=== PATIENT | female | born 1950 | race Hispanic/Latino ===

== ENCOUNTER → 2019-01-02 | Outpatient (CLI) | payer OTHER, MEDICAID | LOC: RESP 13:06 | PROVIDERS: ATTEND Emergency Medicine | DX: R00.1 Bradycardia, unspecified (principal) ==

== ENCOUNTER 2019-12-12 16:47 | Observation (INO) | payer OTHER, MEDICAID ==
--- NOTE | 2019-12-12 16:57 | ED.PDOC ---
History of Present Illness - General Time Seen by Provider: 12/12/19 16:53 Additional Information: This is a 69-year-old female, with a diabetes obesity history of coronary artery disease has had a stress test less than a year, patient presents to the ER because of a two-week history of chest tightness, pain comes and goes but is getting progressively worse even at rest, patient said that it feels like is going to her neck and today she felt dizzy. No nausea no vomiting no diaphoresis no shortness of breath, patient mentioned that when she takes a deep breath he feels like it hurts, patient was supposed to see a direct entry midwife have been trying to make an appointment with his direct entry midwife is in [place] but was unsuccessful in getting an appointment, because she got dizzy she decided to come in and get herself checked - History of Present Illness Timing/Duration: other - 2 weeks Location: central Chest Pain Radiation: neck Activities at Onset: none Prior Chest Pain/Cardiac Workup: cardiac cath, stress test Improving Factors: nothing Worsening Factors: nothing Aspirin Treatment Today: 81 mg x 2 Associated Symptoms: dizziness Allergies/Adverse Reactions: Allergies NO KNOWN ALLERGY Allergy (Verified 12/12/19 17:03) Home Medications: Ambulatory Orders Amlodipine Besylate 5 mg PO DAILY 12/12/19 Aspirin [Aspirin Adult Low Dose] 162 mg PO DAILY 12/12/19 Hydroxyzine HCl 25 mg PO TID PRN 12/12/19 Lisinopril 40 mg PO DAILY 12/12/19 Metformin HCl [Glucophage] 1,000 mg PO BID 12/12/19 Omeprazole 40 mg PO DAILY 12/12/19 Pravastatin Sodium 40 mg PO DAILY 12/12/19 Verapamil HCl [Verapamil Hydrochloride] 120 mg PO DAILY 12/12/19 Review of Systems - Review of Systems Constitutional: States: no symptoms reported Respiratory: States: no symptoms reported Cardiology: States: chest pain Gastrointestinal/Abdominal: States: no symptoms reported Genitourinary: States: no symptoms reported Musculoskeletal: States: no symptoms reported Skin: States: no symptoms reported Neurological: States: no symptoms reported Endocrine: States: no symptoms reported Hematologic/Lymphatic: States: no symptoms reported Family Medical History - Family History Mother Family History: Unknown Living Status: Unknown Physical Exam - Physical Exam General Appearance: Alert, Well Developed, Well Groomed, Well Hydrated, Well Nourished, Other - Obese Eyes, Ears, Nose, Throat Exam: PERRL/EOMI, normal ENT inspection, TMs normal Neck: non-tender, full range of motion, supple, normal inspection Respiratory: chest non-tender, lungs clear, normal breath sounds, no respiratory distress, no accessory muscle use Cardiovascular/Chest: normal peripheral pulses, regular rate, rhythm, no edema, no gallop, no JVD, no murmur Gastrointestinal/Abdominal: normal bowel sounds, non tender, soft, no organomegaly, no pulsatile mass, abnormal bowel sounds Extremity: normal range of motion, non-tender, normal inspection, no pedal edema, no calf tenderness, normal capillary refill 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 FINDINGS: The cardiomediastinal silhouette appears unremarkable. Atherosclerotic calcifications in the thoracic aorta. Mild elevation of the right hemidiaphragm. No consolidating infiltrates or pleural effusions. No pneumothorax. IMPRESSION: No acute abnormality is identified 12/12/19 18:15 12/12/19 18:44 FINDINGS: Aorta is calcified. Mild cardiac enlargement. Calcification of the coronary arteries. No evidence of aortic dissection or pulmonary embolus. Fatty liver. No significant thoracic adenopathy. Focal areas of mosaic attenuation are noted. IMPRESSION:No evidence of pulmonary embolus Cardiac enlargement No evidence of acute process in the chest This is a 69-year-old female, presenting with chest pain, has been going on for a week getting progressively worse patient EKG did not show any acute ischemic changes, patient chest pain got better with aspirin and nitro first set of troponins , Second set of troponins were also negative, CTA was ordered because her D-dimers were elevated and CTA showed calcification of the coronaries without evidence of pneumonia or evidence of pulmonary embolism I spoke with the direct entry midwife Dr. Kramer and patient can stay in the hospital for observation and and also patient should be discharged tomorrow with some sort of a beta-oliver due to her blood pressure and some nitro for the treatment of angina, and the patient should follow-up with her own direct entry midwife once she is discharged - Results/Orders Results/Orders: Patient EKG showed PVC normal sinus rhythm no ST elevation or depression left atrial enlargement left ventricular hypertrophy Departure - Departure Clinical Impression: Chest pain Qualifiers: Chest pain type: unspecified Qualified Code(s): R07.9 - Chest pain, unspecified Disposition: Admit Patient Referrals: LEVY CASANOVA [Primary Care Provider] - 1-2 Weeks Home Medications: Ambulatory Orders Amlodipine Besylate 5 mg PO DAILY 12/12/19 Aspirin [Aspirin Adult Low Dose] 162 mg PO DAILY 12/12/19 Hydroxyzine HCl 25 mg PO TID PRN 12/12/19 Lisinopril 40 mg PO DAILY 12/12/19 Metformin HCl [Glucophage] 1,000 mg PO BID 12/12/19 Omeprazole 40 mg PO DAILY 12/12/19 Pravastatin Sodium 40 mg PO DAILY 12/12/19 Verapamil HCl [Verapamil Hydrochloride] 120 mg PO DAILY 12/12/19 Decision To Admit - Decistion To Admit Decision to Admit Reason: Admit from ER Decision to Admit Date: 12/12/19 Decision to Admit Time: 19:03
[2019-12-12] MEDS ORDERED: ASPIRIN (CHEWABLE) 81 MG TAB PO ONE (17:03)
[2019-12-12] MEDS ORDERED: NITROGLYCERIN 0.4 MG 25 EA TAB SL ONE (17:09)
--- NOTE | 2019-12-12 17:34 | RAD ---
EXAM DESCRIPTION: Chest,1 View CLINICAL HISTORY: 69 years Female Chest pain COMPARISON: 06/17/2019. FINDINGS: The cardiomediastinal silhouette appears unremarkable. Atherosclerotic calcifications in the thoracic aorta. Mild elevation of the right hemidiaphragm. No consolidating infiltrates or pleural effusions. No pneumothorax. IMPRESSION: No acute abnormality is identified. Electronically signed by: Melvin Jules MD 12/12/2019 5:32 PM CDT
--- NOTE | 2019-12-12 18:41 | CT ---
PROCEDURE: CTA Chest CLINICAL HISTORY: 69 years Female rule out pulmonary embolism COMPARISON: None. TECHNIQUE: Contiguous axial images were obtained through the chest during the infusion of IV contrast. Reformatted images obtained. MIP reformatted images obtained. This exam was performed according to our department optimization program which includes automated exposure control, adjustment of the mA and/or kv according to patient size and/or use of iterative reconstruction technique. FINDINGS: Aorta is calcified. Mild cardiac enlargement. Calcification of the coronary arteries. No evidence of aortic dissection or pulmonary embolus. Fatty liver. No significant thoracic adenopathy. Focal areas of mosaic attenuation are noted. IMPRESSION:No evidence of pulmonary embolus Cardiac enlargement No evidence of acute process in the chest Fatty liver Electronically signed by: Eunice Jules MD 12/12/2019 6:39 PM CDT
[2019-12-12] MEDS ORDERED: ENOXAPARIN SODIUM 40 MG/0.4 ML SYG SUBCU SCH (21:00)
[2019-12-12] MEDS ORDERED: amLODIPine BESYLATE 5 MG TAB PO SCH (21:00)
[2019-12-12] MEDS ORDERED: VERAPAMIL HCL 120 MG PO SCH (21:00)
[2019-12-12] MEDS ORDERED: GLUCAGON INJ 1 MG VIAL SUBCU PRN (22:55)
[2019-12-12] MEDS ORDERED: DEXTROSE 50% 25 GM/50 ML SYG IV PRN (22:55)
[2019-12-12] MEDS ORDERED: MORPHINE SULFATE INJ 10 MG/ML VIAL IV PRN (22:56)
[2019-12-12] MEDS ORDERED: NITROGLYCERIN 0.4 MG 25 EA TAB SL PRN (22:56)
[2019-12-12] MEDS ORDERED: SODIUM CHLORIDE 0.9% (FLUSH) 10 ML SYG IV PRN (22:56)
[2019-12-12] MEDS ORDERED: IV SET AND CAP CHANGE INJ INJ SCH (23:00)
[2019-12-12] MEDS ORDERED: NITROGLYCERIN 0.4 MG/HR PATCH TOP SCH (23:00)
[2019-12-12] MEDS ORDERED: VERAPAMIL ER 120 MG TAB PO SCH (23:42)
[2019-12-13] MEDS: ACETAMINOPHEN 325 MG TAB PO PRN ×2 (01:05→12:51)
[2019-12-13] MEDS ORDERED: PANTOPRAZOLE SODIUM IV 40 MG VIAL IV SCH (06:30)
[2019-12-13] MEDS: INSULIN LISPRO 100 UNITS/ML PEN SUBCU SCH ×2 (07:36→11:21)
[2019-12-13] MEDS ORDERED: ASPIRIN TABLET 325 MG TAB PO SCH (09:00)
[2019-12-13] MEDS ORDERED: metFORMIN HCL 500 MG TAB PO SCH (09:00)
[2019-12-13] MEDS ORDERED: SODIUM CHLORIDE 0.9% (FLUSH) 10 ML SYG IV SCH (09:00)
[2019-12-13] MEDS ORDERED: ASPIRIN (ENTERIC COATED) 81 MG TAB PO SCH (09:00)
[2019-12-13] MEDS ORDERED: NON-FORMULARY MEDICATION 1 EA MIS (Omeprazole [Omeprazole] 40 MG) PO SCH (09:00)
[2019-12-13] MEDS: LISINOPRIL 10 MG TAB PO SCH ×2 (09:34→09:54)
[2019-12-13 14:15] VITALS: BP 105/69; TEMP 98.2; O2SAT 97
--- NOTE | 2019-12-13 15:31 | SSS ---
SUPERVISING PHYSICIAN: Edwin Arellano MD CHIEF COMPLAINT: Chest pain. HISTORY OF PRESENT ILLNESS: Ms. Matson is a 69 year-old female with a history of diabetes, obesity, coronary artery disease. She presented to the Emergency Room complaining of chest tightness that has been going on for the last two weeks and has progressively worsened she notes at rest. She denied any nausea or vomiting or shortness of breath or diaphoresis. She notes it does hurt a little bit when she takes a deep breath. She was supposed to see her historical site guide the first of the month but due to the COVID-19 situation did not make that appointment. She does see Dr. Oliveros in [place] and apparently has had a known cath and stress test workup but needs additional intervention at some point. I believe she is supposed to see her historical site guide on December 22. She noted at home she had been getting a little dizzy and at that point decided to come to the Emergency Room for evaluation. She did take 2 aspirin before she got to the Emergency Room. Cardiac workup in the Emergency Room did show her cardiac enzymes were negative times 2 sets. She did have an elevated D-dimer at 887. CT of the chest was completed which was negative for a pulmonary embolus or any other acute process noted in the chest per radiology interpretation. She denied any falls, shortness of breath or tachycardia but does have a fairly large bruise on her upper right arm with some ecchymoses from an event that she is not sure if she bumped her arm on something in the last week but denies any falls. Her EKG in the Emergency Room showed a sinus rhythm with a PVC but no ST elevation or depression. There was some note of left atrial enlargement and some ventricle hypertrophy, otherwise no acute findings to indicate ischemia or injury pattern. Her pain actually was resolved in the Emergency Room prior to request for placement in observation. Based on the patient's history and concerns for acute coronary syndrome, the Emergency Room physician contacted historical site guide, Dr. Kramer, who recommended the patient be placed in observation overnight with blood pressure medicine which after reviewing her medications notes she is on multiple medications including Verapamil. She was placed in observation in stable condition for further evaluation and cardiac telemetry PAST MEDICAL HISTORY: 1. Hypertension. 2. Diabetes mellitus type 2. 3. Depression and anxiety. 4. Coronary artery disease. PAST SURGICAL HISTORY: 1. Right knee replacement. 2. Cholecystectomy. CURRENT MEDICATIONS: 1. Metformin 1000 mg b.i.d. 2. Lisinopril 40 mg daily. 3. Pravastatin 40 mg at bedtime. 4. Aspirin 162 mg daily. 5. Hydroxyzine 25 mg t.i.d. as needed. 6. Verapamil extended release 120 mg at bedtime. 7. Amlodipine 5 mg at bedtime. 8. Omeprazole 40 mg daily. ALLERGIES: No known drug allergies. FAMILY HISTORY: Mother in her late 80s with history of diabetes, hypertension and a stroke. Father in his late 60s, his health history is unknown to the patient. She has 8 brothers and sisters, one sister in her 50s with a history of colon cancer, diabetes mellitus and cardiovascular disease. The rest of her brothers and sisters have diabetes but are fairly healthy. SOCIAL HISTORY: The patient resides in [place], [place] and is disabled, and lives alone. She denies any history of alcohol or tobacco abuse and does not use any illicit drugs. REVIEW OF SYSTEMS: CONSTITUTIONAL: Denies general malaise, fevers, chills, weakness. HEENT: Denies headaches. vision changes, sore throat. nasal congestion, earaches. CHEST: Denies shortness of breath, orthopnea, wheezing or coughing. HEART: As noted in history of present illness, chest tightness, denies palpitations, tachycardia or syncopal episodes. ABDOMEN: Denies nausea, vomiting, diarrhea or constipation. GENITOURINARY: Denies dysuria, hematuria or polyuria. MUSCULOSKELETAL: Denies arthralgias, joint swelling. SKIN: Denies lesions, rashes, moles, other than the bruising on her right upper forearm. NEUROLOGIC: Denies ataxia, seizures, or other focal deficits. HEMATOLOGICAL: Denies unexplained bleeding, easy bruising or transfusion reactions. PHYSICAL EXAMINATION: VITAL SIGNS: On admission to the Emergency Room, temperature 99.3, pulse 89, blood pressure 180/85, respirations 20, oxygen saturation 95% on room air. At time of discharge, vital signs showed a temperature of 98.2, pulse 70, blood pressure 105/69, respirations 18, oxygen saturation 97%on room air. Discharge weight 104.1 kg. GENERAL: The patient was resting comfortably, did not appear to be in acute distress. She is alert, appears well-nourished, well-hydrated. HEENT: Tympanic membranes are clear bilaterally. Oropharynx is pink, moist, without any lesions. NECK: Supple, non-tender, full range of motion, no jugular venous distention. CHEST: Lung sounds were clear to auscultation bilaterally without rhonchi, rales, or wheezes. CARDIOVASCULAR: Regular rate and rhythm without appreciable murmurs, rubs, or gallops. ABDOMEN: Obese, soft, non-tender, positive bowel sounds. EXTREMITIES: Without cyanosis, clubbing, or edema. NEUROLOGIC: Cranial nerves II through XII are grossly intact. She is alert and oriented x3. Facial features were symmetrical. Extraocular movements within normal limits. There was no notable nystagmus. SKIN: Warm, pink and dry. LABORATORY: CBC showed to be within normal limits with white count of 7,500. Hemoglobin 12.8, hematocrit 38.0, platelet count 293,000. Coagulation studies showed a D-dimer of 887. Chemistries showed normal electrolytes, normal lipid panel. She had 3 sets of troponins, all less than 0.02. Blood sugars ranged between 102 and 180. EKG showed a normal sinus rhythm with a few PVCs, no ST or T-wave changes to indicate acute ischemia or acute coronary syndrome. RADIOLOGY: Chest x-ray per radiology interpretation showed acute abnormalities identified. Given her elevated D-dimer and symptomatology, she had a CTA of the chest and per radiology interpretation showed no evidence of pulmonary embolus. Cardiac silhouette was enlarged. There was no evidence of acute process of the chest. There was note of a fatty liver. ADMISSION DIAGNOSES: 1. Chest pain, observation for rule out. 2. Elevated D-dimer with negative CTA of the chest. No indication of acute embolus, probably due to recent traumatic injury to her right upper arm with bruising. 3. Hypertension, poorly controlled. 4. Diabetes mellitus type 2. 5. Depression and anxiety. DISCHARGE DIAGNOSES: 1. Chest pain with no acute findings on workup including negative troponins, EKG with no acute changes with patient scheduled to followup with her historical site guide, Dr. Bagley, already on multiple medications. 2. Hypertension controlled on multiple medications. 3. Diabetes mellitus type 2. 4. Depression and anxiety with some anxiety possibly resulting in patient's symptomatology as listed in #1. HOSPITAL COURSE: Ms. Matson was admitted for chest pain rule out. She was actually pain-free prior to admission to the medical/surgical floor. Given her blood pressure and chest pain and history, I went ahead and started her on nitro patch 0.4. She was already on verapamil, lisinopril and other medications including a statin. Her EKG showed a sinus rhythm with no acute injury pattern. She remained on telemetry. She had no abnormal rhythms. Clinically, she remained pain-free through the observation period and had normalization of her blood pressure and it was felt that she was showing to be clinically stable to discharge and followup with her historical site guide in the following week as scheduled. ASSESSMENT/DISCHARGE: Please see above. PLAN: Ms. Matson was discharged after chest pain rule out. No interventions were required to resolve her chest pain, although she remained on a nitro patch through the hospitalization. She was given aspirin. She is to followup with her historical site guide which was already scheduled for December [address] Oliveros in [place]. IT was recommended she call Dr. Reyes on Sunday after discharge to establish appointment for followup with Dr. Reyes as well to continue followup with her historical site guide. At some point, more than likely she will need a stress test. I have resumed her home medication prior to hospitalization with no additional medications added on discharge. Diet was diabetic diet as tolerated. Activities as tolerated. Increase as per recommendations of Dr. Reyes and Dr. Oliveros. DISPOSITION: Patient was discharged home. CONDITION ON DISCHARGE: Stable and improved. #[id number] [facility]
[2019-12-13] MEDS ORDERED: PRAVASTATIN SODIUM 20 MG TAB PO SCH (21:00)
== END 2019-12-13 15:48 | disposition home or self-care (01) ==
LOC: ER 16:47 → MS 19:49
PROVIDERS: ADMIT Nurse Practitioner Family; ATTEND Nurse Practitioner Family
DX: R07.89 Other chest pain (principal); I10 Essential (primary) hypertension; E11.9 Type 2 diabetes mellitus without complications; F32.9 Major depressive disorder, single episode, unspecified; F41.9 Anxiety disorder, unspecified; R79.89 Other specified abnormal findings of blood chemistry; I49.3 Ventricular premature depolarization; I25.10 Atherosclerotic heart disease of native coronary artery without angina pectoris; E66.9 Obesity, unspecified; I70.0 Atherosclerosis of aorta; Z68.41 Body mass index [BMI] 40.0-44.9, adult; Z79.84 Long term (current) use of oral hypoglycemic drugs; Z79.82 Long term (current) use of aspirin; Z79.899 Other long term (current) drug therapy; Z96.651 Presence of right artificial knee joint; Z90.49 Acquired absence of other specified parts of digestive tract; Z60.2 Problems related to living alone; Z82.49 Family history of ischemic heart disease and other diseases of the circulatory system; Z83.3 Family history of diabetes mellitus; Z82.3 Family history of stroke; Z80.0 Family history of malignant neoplasm of digestive organs
CPT/HCPCS: 96374; 96372; J1650; 85379; 80053; 82948 ×2; 80061; 36415 ×5; 85025; 84484 ×3; 83880; 36416 ×2; 71045; 71275; 94760 ×2; 94762; 99285; 93005; G0378

== ENCOUNTER → 2020-02-19 | Outpatient (CLI) | payer OTHER, MEDICAID ==
--- NOTE | 2020-02-20 09:17 | RAD ---
EXAM DESCRIPTION: Wrist,Left 3 Views CLINICAL HISTORY: 69 years, Female, M25.532 PAIN IN LEFT WRIST COMPARISON: None FINDINGS: Left wrist 3 x-ray views is negative for fracture or dislocation. Advanced degenerative osteoarthrosis of the first carpometacarpal joint with spurring and degenerative separation of bases of the first and second metacarpals. 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 Dislocated appearance of the distal ulna relative to the radius with widened radial ulnar joint is also likely congenital or posttraumatic. Thickened appearance of the soft tissues overlying the dorsal more than ventral aspect of the radius on the lateral view. Clinical correlation recommended as to whether this is a chronic finding or acute swelling. IMPRESSION: Deformity of the wrist may be chronic posttraumatic or congenital abnormality (metal lungs deformity). Advanced degenerative osteoarthrosis of the first carpometacarpal joint. Electronically signed by: Parvez Chisholm MD 02/20/2020 9:15 AM CDT
== END ==
LOC: RAD 16:25
PROVIDERS: ATTEND Emergency Medicine
DX: M25.9 Joint disorder, unspecified (principal); M18.12 Unilateral primary osteoarthritis of first carpometacarpal joint, left hand